=== PATIENT | female | born 1970 | race Caucasian/White ===

== ENCOUNTER 2016-12-30 05:39 | Day surgery (SDC) | payer BC ==
[2016-12-29 08:02] LABS: BASOPHILS 0.7 %; BASOPHILS ABSOLUTE 0.06 10/3/uL (0.0-0.16); EOSINOPHILS 4.2 %; EOSINOPHILS ABSOLUTE 0.37 10/3/uL (0.0-0.53); HEMATOCRIT 39.3 % (36.0-48.0); HEMOGLOBIN 12.9 g/dL (12.0-16.0); IMMATURE GRANULOCYTES 0.2 %; IMMATURE GRANULOCYTES ABSOLUTE 0.02 10/3/uL (0.0-0.11); LYMPHOCYTES 32.5 %; LYMPHOCYTES ABSOLUTE 2.88 10/3/uL (0.67-4.30); MEAN CORPUS HGB CONC 32.8 g/dL (32.0-36.0); MEAN CORPUSCULAR HEMOGLOB 27.4 pg (26.0-34.0); MEAN CORPUSCULAR VOLUME 83.6 fL (80-100); MEAN PLATELET VOLUME 9.6 fL (9.2-13.0); MONOCYTES 7.5 %; MONOCYTES ABSOLUTE 0.66 10/3/uL (0.21-1.20); NEUTROPHILS 54.9 %; NEUTROPHILS ABSOLUTE 4.86 10/3/uL (2.02-8.40); PLATELET COUNT 325 10/3/uL (150-400); RBC DISTRIBUTION WIDTH 13.8 % (12.0-16.0); WHITE BLOOD CELLS 8.9 10/3/uL (4.5-10.5)
[2016-12-29 08:03] LABS: MANUAL DIFF NO %
[2016-12-29 08:10] LABS: PARTIAL THROMBO TIME 29.1 SEC (22.5-37.2)
[2016-12-29 08:16] LABS: BUN (BLOOD UREA NITROGEN) 9 MG/DL (6-23); CHLORIDE, SERUM 104 MMOL/L (96-112); CO2 (CARBON DIOXIDE) 26 MMOL/L (24-34); CREATININE 0.71 MG/DL (0.55-1.02); GFR AFRICAN AMERICAN 120 ML/MIN (>=60); GFR NON AFRICAN AMERICAN 104 ML/MIN (>=60); GLUCOSE, SERUM 132 MG/DL (60-99); POTASSIUM, SERUM 3.9 MMOL/L (3.5-5.3); SODIUM, SERUM 139 MMOL/L (135-148)
[~2016-12-30] VITALS: Ht 157.5 cm; Wt 91.4 kg
--- NOTE | ~2016-12-30 | OP ---
Record Of Operation [facility] [address] [place]. [address] NAME: OMID SINGH : 74 STATUS : [facility] [place] PAT#: [id number] AGE: 46 ADM/REG DATE : 12/30/16 MR#: [id number] REPORT SERV DATE: 12/30/16 DICTATED BY: BERENICE ANN DATE: 12/30/16 REPORT STATUS : Draft TRANSCRIBED BY: MODL DATE: 12/30/16 DATE OF PROCEDURE: 12/30/2016 PREOPERATIVE DIAGNOSIS: Moderate obstructive sleep apnea syndrome. POSTOPERATIVE DIAGNOSIS: Moderate obstructive sleep apnea syndrome. PROCEDURE PERFORMED: Uvulopalatopharyngoplasty with tonsillectomy. RELIGION PROFESSOR: None. ANESTHESIA: General. COMPLICATIONS: None. CONDITION: Stable to recovery. INDICATIONS: A 46-year-old female with moderate obstructive sleep apnea syndrome with tonsillar hypertrophy and elongated uvula. The risks, benefits, and alternatives to surgery were explained, and she agreed. PROCEDURE IN DETAIL: The patient was identified in preoperative holding, taken back to the operating room, and placed supine on the operating room table. General anesthesia was established. A time-out was called and the patient and procedure were confirmed. She was prepped and draped in a standard fashion for the operation. A Jojo-Shakir mouth gag was introduced to the oral cavity and her retrognathic mandible and large tongue made exposure difficult, so I had to sweep the tongue to the left to address the right tonsil initially. With a McIvor mouth gag placed, the tonsil was infiltrated with 2 mL of 1% lidocaine with 1:100,000 epinephrine. Using 2.5X loupe magnification and headlight illumination, the operation commenced. A Bovie cautery and curved Allis clamp were used to remove the right tonsil. The tonsil was retracted medially. It was dissected off the pharyngeal constrictor muscle. There was dense adhesions from previous infection. There was minimal blood loss. The McIvor mouth gag was then relaxed. The tongue was shifted to the right side and the left tonsil was addressed in a similar fashion. At the end of removing this tonsil, I placed the tongue in the midline. McIvor retractor was retracted and I could partially see the upper soft palate region and this allowed symmetrical distribution of 3-0 chromic sutures along the pharynx and allowed this resection of the lower two-thirds of the uvula. I reapproximated the posterior and anterior mucosa at the base of the uvula and along the anterior posterior tonsillar pillar mucosa. Providing pharyngoplasty expansion of the pharynx. She tolerated this well. There were no bleeding or complications. There was contact with the soft palate with gentle palpation to the posterior pharynx. The patient was handed over to Anesthesia for extubation and returned to recovery. There were no complications. Record Of Operation [address] [place]. [address] NAME: OIMD SINGH : 74 STATUS : [facility] [place] [facility] PAT#: [id number] AGE: 46 ADM/REG DATE : 12/30/16 MR#: [id number] REPORT SERV DATE: 12/30/16 DICTATED BY: BERENICE ANN DATE: 12/30/16 REPORT STATUS : Draft TRANSCRIBED BY: ERIC DATE: 12/30/16 PH/ERIC Berenice Ann M.D. / [id number] CC: Almaz Blount FRANCES
[~2016-12-30 05:39] MED LIST: CELEXA10 PO; TUMSROLL PO
== END 2016-12-30 14:58 | disposition home or self-care (01) ==
LOC: SDC 05:39
PROVIDERS: Specialist
PROC: 0CTP0ZZ Resection of Tonsils, Open Approach (ICD-10-PCS; principal; 2016-12-30 07:15)
DX: J35.1 Hypertrophy of tonsils (principal); G47.33 Obstructive sleep apnea (adult) (pediatric); E66.01 Morbid (severe) obesity due to excess calories; K21.9 Gastro-esophageal reflux disease without esophagitis; F41.9 Anxiety disorder, unspecified; F32.9 Major depressive disorder, single episode, unspecified; Z99.89 Dependence on other enabling machines and devices
CPT/HCPCS: 80048; 82962; 84703; 85025; 85730; 88302; 88304; A9270-GY; J0690; J1170; J2250; J2405; J2710; J3010